=== PATIENT | male | born 2000 | race African-American/Black ===

== ENCOUNTER 2018-04-01 13:43 | Emergency (ER) | payer OTHER ==
[~2018-04-01] VITALS: Ht 177.8 cm; Wt 69.9 kg
[2018-04-01 15:01] VITALS: BP 125/68
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
== END 2018-04-01 15:00 | disposition home or self-care (01) ==
LOC: ER 13:43
DX: M25.551 Pain in right hip (principal); R42 Dizziness and giddiness; G89.11 Acute pain due to trauma; Z88.0 Allergy status to penicillin; V49.59XA Passenger injured in collision with other motor vehicles in traffic accident, initial encounter; Y93.89 Activity, other specified; Y92.89 Other specified places as the place of occurrence of the external cause; Y99.8 Other external cause status
CPT/HCPCS: 99281

== ENCOUNTER 2019-08-20 20:52 | Emergency (ER) | payer OTHER ==
[~2019-08-20] VITALS: Ht 180.3 cm; Wt 72.0 kg
[2019-08-20 20:55] VITALS: BP 123/75
[2019-08-20 22:03] LABS: BASO % 0 % (0-3); EOS # 0.4 x10^3/uL (0.0-0.7); EOS % 9 % (0-3); HEMATOCRIT 42.9 % (39.0-53.0); HEMOGLOBIN 13.9 g/dL (13.0-17.5); LYMPH # 1.9 x10^3/uL (1.0-4.8); LYMPH % 37 % (24-48); MEAN CORPUSCULAR HEMOGLOBIN 28 pg (25-35); MEAN CORPUSCULAR HGB CONC 33 g/dL (31-37); MEAN CORPUSCULAR VOLUME 85 fL (79-100); MONO # 0.9 x10^3/uL (0.0-1.1); MONO % 17 % (0-9); NEUT # 1.9 x10^3uL (1.8-7.7); NEUT % 37 % (31-73); PLATELET COUNT 291 x10^3/uL (140-400); RED BLOOD COUNT 5.07 x10^6/uL (4.30-5.70); RED CELL DISTRIBUTION WIDTH 14.9 % (11.5-14.5); WHITE BLOOD COUNT 5.1 x10^3/uL (4.0-11.0)
[2019-08-20 22:08] LABS: CALCIUM 9.2 mg/dL (8.5-10.1); CREATININE 1.1 mg/dL (0.7-1.3); GFR 102.2; POTASSIUM 3.7 mmol/L (3.5-5.1)
[2019-08-20] MEDS: IOHEXOL 300 MG/ML 75 ML VIAL. IV ONE (22:09)
[2019-08-20 22:13] LABS: ALBUMIN 3.8 g/dL (3.4-5.0); MAGNESIUM 2.1 mg/dL (1.8-2.4); TOTAL BILIRUBIN 0.3 mg/dL (0.2-1.0); TOTAL PROTEIN 7.5 g/dL (6.4-8.2)
[2019-08-20] MEDS: DEXAMETHASONE SOD PHOS 4 MG/ML VIAL IVP ONE (22:31)
[2019-08-20] MEDS: IV NORMAL SALINE 1,000ML 1,000 ML IV ONE (22:31)
[2019-08-20] MEDS: KETOROLAC 15 MG/ML VIAL. IVP ONE (22:31)
--- NOTE | 2019-08-20 22:35 | RAD ---
CT scan of the abdomen and pelvis with contrast 08/20/2019 CLINICAL HISTORY: Left lower quadrant abdominal pain. Blood in stools. TECHNIQUE: After the intravenous administration of 73 cc of Omnipaque 300, contiguous, 5 mm axial sections were obtained through the abdomen and pelvis. One or more of the following individualized dose reduction techniques were utilized for this study: 1. Automated exposure control. 2. Adjustment of the mA and/or kV according to patient size. 3. Use of iterative reconstruction technique. FINDINGS: The absence of oral contrast material limits the sensitivity of this study for the detection of bowel pathology. Images through the lung bases demonstrate minimal dependent subsegmental atelectasis bilaterally. The liver, spleen, pancreas, adrenal glands and kidneys are within normal limits. The abdominal aorta tapers normally. The gallbladder is contracted. No free fluid or free air is seen within the abdomen. There is no evidence of bowel obstruction. Air and stool are seen throughout the colon. The appendix is within normal limits. Images through the pelvis demonstrate the urinary bladder distended with urine. No free fluid is seen. Minimal S-shaped curvature of the thoracolumbar spine is noted. IMPRESSION: No acute abnormality is seen. Electronically signed by: Fer Michelle MD (08/20/2019 10:32 PM) [id number]
[2019-08-20] MEDS ORDERED: HYDR25SU18 RC (22:43)
[2019-08-20] MEDS ORDERED: HYOS0.1265 SL (22:43)
[2019-08-20] MEDS ORDERED: PRED20TA PO (22:43)
--- NOTE | 2019-08-20 22:44 | PHYS DOC ---
Past History Past Medical History: Other Additional Past Medical Histor: lactose intolerant Past Surgical History: Other Additional Past Surgical Histo: hernia repair as infant Smoking: Non-smoker Alcohol Use: None Drug Use: None Adult General Chief Complaint Chief Complaint: ABDOMINAL PAIN HPI HPI 19-year-old male presents with intermittent left lower quadrant abdominal pain is been ongoing for the past 2 weeks. Patient reports noting some diarrhea with mucus and bright red blood which started 4 days ago. Patient reports pain comes on prior to BM. Patient reports pain currently well controlled. Patient denies known sick contacts. Denies fever or chills. Denies nausea or vomiting. Patient does report family history of ulcerative colitis. Denies rectal pain. Denies tra clemente outside the [place]. Review of Systems Review of Systems Constitutional: Denies fever or chills Eyes: Denies redness or eye pain HENT: Denies nasal congestion or sore throat Respiratory: Denies cough or shortness of breath Cardiovascular: Denies chest pain or palpitations GI: Reports abdominal pain, bloody stools, and diarrhea; denies vomiting Musculoskeletal: Denies back pain or joint pain Integument: Denies rash or skin lesions Neurologic: Denies headache, focal weakness or sensory changes Complete systems were reviewed and found to be within normal limits, except as documented in this note. Current Medications Current Medications Current Medications Medications (Trade) Dose Ordered Sig/Brianna Start Time Stop Time Status Last Admin Dose Admin Dexamethasone Sodium Phosphate (Decadron) 10 mg 1X ONCE 08/20/19 21:45 08/20/19 21:46 DC 08/20/19 22:31 10 MG Iohexol (Omnipaque 300 Mg/ml) 75 ml 1X ONCE 08/20/19 22:00 08/20/19 22:01 DC 08/20/19 22:09 75 ML Ketorolac Tromethamine (Toradol 15mg Vial) 15 mg 1X ONCE 08/20/19 21:45 08/20/19 21:46 DC 08/20/19 22:31 15 MG Sodium Chloride 1,000 ml @ 1,000 mls/hr 1X ONCE 08/20/19 21:45 08/20/19 22:44 08/20/19 22:31 1,000 MLS/HR Allergies Allergies Allergies Coded Allergies Type Severity Reaction Last Updated Verified Penicillins Allergy Unknown 04/01/18 Yes Physical Exam Physical Exam Constitutional: Well developed, well nourished, no acute distress, non-toxic appearance HENT: Normocephalic, atraumatic, oropharynx moist Eyes: Conjunctiva normal, no discharge Neck: Normal range of motion, no tenderness, supple Cardiovascular: Heart rate normal, regular rhythm Lungs & Thorax: Bilateral breath sounds clear to auscultation, no wheezing Abdomen: Soft, LLQ tenderness, no guarding Rectal: No external hemorrhoid, no internal hemorrhoid on digital rectal exam, mucous with scant blood noted Skin: Warm, dry, no erythema, no rash Extremities: No tenderness, ROM intact, no edema Neurologic: Alert and oriented X 3, no focal deficits noted Psychologic: Affect normal, judgment normal Current Patient Data Vital Signs Vital Signs Date Time Temp Pulse Resp B/P (MAP) Pulse Ox O2 Delivery O2 Flow Rate FiO2 08/20/19 20:55 98.1 80 18 123/75 (91) 99 Room Air Lab Results Laboratory Tests Test 08/20/19 21:30 White Blood Count 5.1 x10^3/uL (4.0-11.0) Red Blood Count 5.07 x10^6/uL (4.30-5.70) Hemoglobin 13.9 g/dL (13.0-17.5) Hematocrit 42.9 % (39.0-53.0) Mean Corpuscular Volume 85 fL (79-100) Mean Corpuscular Hemoglobin 28 pg (25-35) Mean Corpuscular Hemoglobin Concent 33 g/dL (31-37) Red Cell Distribution Width 14.9 % (11.5-14.5) H Platelet Count 291 x10^3/uL (140-400) Neutrophils (%) (Auto) 37 % (31-73) Lymphocytes (%) (Auto) 37 % (24-48) Monocytes (%) (Auto) 17 % (0-9) H Eosinophils (%) (Auto) 9 % (0-3) H Basophils (%) (Auto) 0 % (0-3) Neutrophils # (Auto) 1.9 x10^3uL (1.8-7.7) Lymphocytes # (Auto) 1.9 x10^3/uL (1.0-4.8) Monocytes # (Auto) 0.9 x10^3/uL (0.0-1.1) Eosinophils # (Auto) 0.4 x10^3/uL (0.0-0.7) Basophils # (Auto) 0.0 x10^3/uL (0.0-0.2) Prothrombin Time 9.9 SEC (9.4-11.4) Prothrombin Time INR 1.0 (0.9-1.1) Activated Partial Thromboplast Time 27 SEC (23-33) Sodium Level 142 mmol/L (136-145) Potassium Level 3.7 mmol/L (3.5-5.1) Chloride Level 105 mmol/L (98-107) Carbon Dioxide Level 28 mmol/L (21-32) Anion Gap 9 (6-14) Blood Urea Nitrogen 7 mg/dL (8-26) L Creatinine 1.1 mg/dL (0.7-1.3) Estimated GFR (Cockcroft-Gault) 102.2 BUN/Creatinine Ratio 6 (6-20) Glucose Level 91 mg/dL (70-99) Calcium Level 9.2 mg/dL (8.5-10.1) Magnesium Level 2.1 mg/dL (1.8-2.4) Total Bilirubin 0.3 mg/dL (0.2-1.0) Aspartate Amino Transferase (AST) 24 U/L (15-37) Alanine Aminotransferase (ALT) 34 U/L (16-63) Alkaline Phosphatase 111 U/L (46-116) Total Protein 7.5 g/dL (6.4-8.2) Albumin 3.8 g/dL (3.4-5.0) Albumin/Globulin Ratio 1.0 (1.0-1.7) Lipase 556 U/L (73-393) H EKG EKG [] Radiology/Procedures Radiology/Procedures PROCEDURE: CT ABD PELV W/ IV CONTRST ONLY CT scan of the abdomen and pelvis with contrast 08/20/2019 CLINICAL HISTORY: Left lower quadrant abdominal pain. Blood in stools. TECHNIQUE: After the intravenous administration of 73 cc of Omnipaque 300, contiguous, 5 mm axial sections were obtained through the abdomen and pelvis. One or more of the following individualized dose reduction techniques were utilized for this study: 1. Automated exposure control. 2. Adjustment of the mA and/or kV according to patient size. 3. Use of iterative reconstruction technique. FINDINGS: The absence of oral contrast material limits the sensitivity of this study for the detection of bowel pathology. Images through the lung bases demonstrate minimal dependent subsegmental atelectasis bilaterally. The liver, spleen, pancreas, adrenal glands and kidneys are within normal limits. The abdominal aorta tapers normally. The gallbladder is contracted. No free fluid or free air is seen within the abdomen. There is no evidence of bowel obstruction. Air and stool are seen throughout the colon. The appendix is within normal limits. Images through the pelvis demonstrate the urinary bladder distended with urine. No free fluid is seen. Minimal S-shaped curvature of the thoracolumbar spine is noted. IMPRESSION: No acute abnormality is seen. Electronically signed by: Fer Michelle MD (08/20/2019 10:32 PM) [id number] Course & Med Decision Making Course & Med Decision Making Pertinent Labs and Imaging studies reviewed. (See chart for details) Patient presents with left lower quadrant abdominal pain with intermittent diarrhea that was noted to have mucus and hematochezia. Rectal exam without signs of hemorrhoid. CT abdomen/pelvis without acute process. Labs obtained and posted to chart. Patient with family history of ulcerative colitis. Concerned that patient may also be displaying early signs of ulcerative colitis. Symptomatic steroid provided. Patient stable for discharge with outpatient follow-up with PCP/GI. GI referral provided. Discussed findings and plan with patient, who acknowledges understanding and agreement. Dragon Disclaimer Dragon Disclaimer This electronic medical record was generated, in whole or in part, using a voice recognition dictation system. Departure Departure: Impression: Primary Impression: LLQ abdominal pain Additional Impression: Hematochezia Disposition: 01 HOME, SELF-CARE Condition: STABLE Referrals: PCP,CHRISTIANO (PCP) AMADOU CRAMER MD Patient Instructions: Abdominal Pain (Nonspecific), Rectal Bleeding, [id number], Ulcerative Colitis Scripts Hyoscyamine Sulfate (LEVSIN-SL) 0.125 Mg Tab.subl 0.125 MG SL Q4-6HRS PRN for PAIN, #14 TAB Prov: ANTONIETA VALE DO 08/20/19 Prednisone (PREDNISONE) 20 Mg Tablet 2 TAB PO DAILY for Colitis, #8 TAB Start this prescription tomorrow, 08/20 Prov: ANTONIETA VALE DO 08/20/19 Hydrocortisone Acetate (ANUSOL-HC) 25 Mg Supp.rect 1 SUPP RC BID PRN for Rectal bleeding for 7 Days, #14 SUPP 0 Refills Prov: ANTONIETA VALE DO 08/20/19 Problem Qualifiers ANTONIETA VALE DO Aug 20, 2019 22:43
[2019-08-20 23:16] LABS: BILIRUBIN,URINE NEG (NEG); CLARITY,URINE CLEAR; COLOR,URINE YELLOW; GLUCOSE,URINE NEG (NEG); NITRITE,URINE NEG (NEG); UROBILINOGEN,URINE 0.2 mg/dL (0.2 mg/dL)
[2019-08-20 23:17] LABS: BACTERIA,URINE 0 /HPF (0-FEW); RBC,URINE 0 /HPF (0-2); WBC,URINE RARE /HPF (0-4)
== END 2019-08-20 23:30 | disposition home or self-care (01) ==
LOC: ER 20:52
DX: R10.32 Left lower quadrant pain (principal); K92.1 Melena; Z88.0 Allergy status to penicillin
CPT/HCPCS: 36415; 74177; 80053; 81001; 83605; 83690; 83735; 85025; 85610; 85730; 96374; 96375; 99285; J1100; J1885; Q9967; J7030

== ENCOUNTER 2020-03-25 14:54 | Emergency (ER) | payer OTHER ==
[~2020-03-25] VITALS: Ht 180.3 cm; Wt 72.0 kg
[~2020-03-25 14:54] MED LIST: HYDR25SU18 RC; HYOS0.1265 SL; PRED20TA PO
[2020-03-25] MEDS ORDERED: FAMOTIDINE 20 MG/2 ML VIAL IVP ONE (15:15)
[2020-03-25] MEDS ORDERED: IOHEXOL 300 MG/ML 75 ML VIAL. IV ONE (15:15)
[2020-03-25] MEDS ORDERED: FAMOTIDINE 20 MG/2 ML VIAL ONE (15:17)
--- NOTE | 2020-03-25 15:29 | PHYS DOC ---
Past History Past Medical History: Other Additional Past Medical Histor: lactose intolerant (BEVERLY BERMEO APRN) Past Surgical History: Other Additional Past Surgical Histo: hernia repair as infant (BEVERLY BERMEO APRN) Smoking: Non-smoker Alcohol Use: None Drug Use: None (BEVERLY BERMEO APRN) Adult General Chief Complaint Chief Complaint: DIARRHEA HPI HPI Patient is a 20-year-old male patient presenting to the ED today complaining of generalized abdominal pain with rectal bleeding on and off since September 2019. Patient states she has been seen in the ED as well as by an outpatient with , He states he has not had any affirmative diagnosis but he was seen by a doctor yesterday and was started prednisone on surveillance on. He states he still has bloody diarrhea and abdominal pain. Denies any fever. Denies any nausea, vomiting. He states the doctor who saw him yesterday told him he needs to be seen by a GI doctor. (BEVERLY BERMEO APRN) Review of Systems Review of Systems Constitutional: Denies fever or chills [] Eyes: Denies change in visual acuity, redness, or eye pain [] HENT: Denies nasal congestion or sore throat [] Respiratory: Denies cough or shortness of breath [] Cardiovascular: No additional information not addressed in HPI [] GI: Reports abdominal pain and rectal bleeding, denies any nausea vomiting : Denies dysuria or hematuria [] Musculoskeletal: Denies back pain or joint pain [] Integument: Denies rash or skin lesions [] Neurologic: Denies headache, focal weakness or sensory changes [] All other systems were reviewed and found to be within normal limits, except as documented in this note. (BEVERLY BERMEO APRN) Current Medications Current Medications Current Medications Medications (Trade) Dose Ordered Sig/Brianna Start Time Stop Time Status Last Admin Dose Admin Famotidine (Pepcid Vial) 20 mg STK-MED ONCE 03/25/20 15:17 03/25/20 15:19 DC Info (Do NOT chart on this entry -- for MONITORING) 1 each PRN DAILY PRN 03/25/20 15:30 03/27/20 15:29 Iohexol (Omnipaque 300 Mg/ml) 75 ml 1X ONCE 03/25/20 15:15 03/25/20 15:19 DC (BEVERLY BERMEO APRN) Allergies Allergies Allergies Coded Allergies Type Severity Reaction Last Updated Verified Penicillins Allergy Unknown 04/01/18 Yes (BEVERLY BERMEO APRN) Physical Exam Physical Exam Constitutional: Well developed, well nourished, no acute distress, non-toxic appearance. [] HENT: Normocephalic, atraumatic, bilateral external ears normal, oropharynx moist, no oral exudates, nose normal. [] Eyes: PERRLA, EOMI, conjunctiva normal, no discharge. [] Neck: Normal range of motion, no tenderness, supple, no stridor. [] Cardiovascular:Heart rate regular rhythm, no murmur [] Lungs & Thorax: Bilateral breath sounds clear to auscultation [] Abdomen: Bowel sounds normal, soft, no tenderness, no masses, no pulsatile masses. [] Skin: Warm, dry, no erythema, no rash. [] Back: No tenderness, no CVA tenderness. [] Extremities: No tenderness, no cyanosis, no clubbing, ROM intact, no edema. [] Neurologic: Alert and oriented X 3, normal motor function, normal sensory function, no focal deficits noted. [] Psychologic: Affect normal, judgement normal, mood normal. [] (BEVERLY BERMEO APRN) EKG EKG [] (BEVERLY BERMEO APRN) Radiology/Procedures Radiology/Procedures []PROCEDURE: CT ABD PELV W/ IV CONTRST ONLY EXAM: CT Abdomen and Pelvis without IV contrast INDICATION: Reason: abd pain with rectal bleeding / Spl. Instructions: / History: TECHNIQUE: Multi-detector row CT images were acquired from the lung bases through the abdomen and pelvis without the use of IV contrast. Sagittal and coronal images were acquired from the transaxial data. All CT scans performed at this facility utilize dose optimization techniques as appropriate to the exam, including the following: Automated exposure control and adjustment of the mA and/or KV according to patient size (this includes techniques or standardized protocols for targeted exams where dose is indication/reason for exam). ORAL CONTRAST: None COMPARISON: None FINDINGS: The patient is very muscular and has an extreme paucity of intra-abdominal fat which limits detailed assessment. This is further compounded by lack of enteric contrast administration. The absence of IV contrast limits evaluation of soft tissue pathology. LOWER CHEST: Unremarkable LIVER: Unremarkable BILIARY SYSTEM: Gallbladder is unremarkable. Bile ducts are not dilated. PANCREAS: Unremarkable SPLEEN: Unremarkable ADRENALS: Unremarkable KIDNEYS & URETERS: Unremarkable BLADDER: Unremarkable REPRODUCTIVE ORGANS: Unremarkable GASTROINTESTINAL: The stomach, small bowel, and colon are unremarkable. The appendix is not well seen in its entirety. However, a portion of it is suspected present along the deep aspect of the right linea semilunaris and could be assessed in greater detail by ultrasound if clinically warranted. There are no findings suggestive of acute appendicitis. MESENTERY/PERITONEUM/RETROPERITONEUM: Unremarkable VASCULAR: Unremarkable LYMPH NODES: No adenopathy OSSEOUS & SOFT TISSUES: Unremarkable IMPRESSION: No acute findings on contrast enhanced CT of the abdomen and pelvis. Consider a GI bleeding scan in further evaluation. Electronically signed by: Riya Arguello MD (03/25/2020 3:48 PM) [facility] [place] DICTATED AND SIGNED BY: RIYA ARGUELLO MD DATE: 03/25/20 1548 CC: E[facility]; BEVERLY BERMEO APRN; PCP,NO ~ (BEVERLY BERMEO APRN) Heart Score Risk Factors: Risk Factors: DM, Current or recent (<one month) smoker, HTN, HLP, family history of CAD, obesity. Risk Scores: Risk Factors: DM, Current or recent (<one month) smoker, HTN, HLP, family history of CAD, obesity. (BEVERLY BERMEO APRN) Course & Med Decision Making Course & Med Decision Making Pertinent Labs and Imaging studies reviewed. (See chart for details) This is a 20-year-old male patient presented to the ED today with rectal bleeding and generalized abdominal pain since September 2019. 37 months ago. Was seen by a doctor yesterday and was started on prednisone. CBC with a normal WBC, normal hemoglobin and hematocrit. CMP with a creatinine of 1.5, BUN is normal. Given a liter of fluid. CT of the abdomen and pelvic is negative for any acute findings. Positive hemocult. Provided rx for pepcid. F/u with GI (BEVERLY BERMEO APRN) Dragon Disclaimer Dragon Disclaimer This electronic medical record was generated, in whole or in part, using a voice recognition dictation system. (BEVERLY BERMEO APRN) Departure Departure: Impression: Primary Impression: Rectal bleeding Additional Impressions: ARF (acute renal failure) Dehydration Abdominal pain Disposition: 01 DC HOME SELF CARE/HOMELESS Condition: STABLE Referrals: PCP,NO (PCP) AMADOU CRAMER MD follow up in 1 week Patient Instructions: Abdominal Pain (Nonspecific), Dehydration, Adult, Rectal Bleeding, [id number] Additional Instructions: You were seen for abdominal pain with rectal bleeding. Your work-up showed you are dehydrated, you given some IV fluids in the ED. Push fluids at home. Please follow-up with the provided esthetic dermatologist as soon as possible. Take the prescribed medications as ordered. Scripts Ondansetron (ONDANSETRON ODT) 4 Mg Tab.rapdis 1 TAB PO PRN Q6-8HRS, #16 TAB Prov: BEVERLY BERMEO APRN 03/25/20 Dicyclomine Hcl (DICYCLOMINE HCL) 20 Mg Tablet 1 TAB PO TID, #30 TAB 1 Refill Prov: BEVERLY BERMEO APRN 03/25/20 Famotidine (FAMOTIDINE) 20 Mg Tablet 1 TAB PO DAILY, #14 TAB 0 Refills Prov: BEVERLY BERMEO APRN 03/25/20 Attending Signature Attending Signature I have reviewed the PA/FORENSIC PSYCHIATRIST's note and plan of care. I was available for consultation as needed during the patient's visit in the emergency department. I agree with the clinical impression, plan, and disposition. (ANTONIETA VALE DO) Problem Qualifiers Additional Impressions: ARF (acute renal failure) Acute renal failure type: unspecified Qualified Codes: N17.9 - Acute kidney failure, unspecified Abdominal pain Abdominal location: generalized Qualified Codes: R10.84 - Generalized abdominal pain BEVERLY BERMEO APRN Mar 25, 2020 15:29 ANTONIETA VALE DO Mar 26, 2020 06:22
[2020-03-25] MEDS ORDERED: CONTRAST GIVEN. MC PRN (15:30)
[2020-03-25 15:49] LABS: BASO % 0 % (0-3); EOS # 0.1 x10^3/uL (0.0-0.7); EOS % 2 % (0-3); HEMATOCRIT 44.5 % (39.0-53.0); HEMOGLOBIN 14.2 g/dL (13.0-17.5); LYMPH # 1.1 x10^3/uL (1.0-4.8); LYMPH % 17 % (24-48); MEAN CORPUSCULAR HEMOGLOBIN 27 pg (25-35); MEAN CORPUSCULAR HGB CONC 32 g/dL (31-37); MEAN CORPUSCULAR VOLUME 84 fL (79-100); MONO # 0.3 x10^3/uL (0.0-1.1); MONO % 5 % (0-9); NEUT # 5.1 x10^3uL (1.8-7.7); NEUT % 77 % (31-73); PLATELET COUNT 345 x10^3/uL (140-400); RED BLOOD COUNT 5.27 x10^6/uL (4.30-5.70); RED CELL DISTRIBUTION WIDTH 16.3 % (11.5-14.5); WHITE BLOOD COUNT 6.6 x10^3/uL (4.0-11.0)
[2020-03-25 15:51] LABS: CALCIUM 9.5 mg/dL (8.5-10.1); CREATININE 1.5 mg/dL (0.7-1.3); GFR 70.8; POTASSIUM 3.8 mmol/L (3.5-5.1)
--- NOTE | 2020-03-25 15:51 | RAD ---
EXAM: CT Abdomen and Pelvis without IV contrast INDICATION: Reason: abd pain with rectal bleeding / Spl. Instructions: / History: TECHNIQUE: Multi-detector row CT images were acquired from the lung bases through the abdomen and pelvis without the use of IV contrast. Sagittal and coronal images were acquired from the transaxial data. All CT scans performed at this facility utilize dose optimization techniques as appropriate to the exam, including the following: Automated exposure control and adjustment of the mA and/or KV according to patient size (this includes techniques or standardized protocols for targeted exams where dose is indication/reason for exam). ORAL CONTRAST: None COMPARISON: None FINDINGS: The patient is very muscular and has an extreme paucity of intra-abdominal fat which limits detailed assessment. This is further compounded by lack of enteric contrast administration. The absence of IV contrast limits evaluation of soft tissue pathology. LOWER CHEST: Unremarkable LIVER: Unremarkable BILIARY SYSTEM: Gallbladder is unremarkable. Bile ducts are not dilated. PANCREAS: Unremarkable SPLEEN: Unremarkable ADRENALS: Unremarkable KIDNEYS & URETERS: Unremarkable BLADDER: Unremarkable REPRODUCTIVE ORGANS: Unremarkable GASTROINTESTINAL: The stomach, small bowel, and colon are unremarkable. The appendix is not well seen in its entirety. However, a portion of it is suspected present along the deep aspect of the right linea semilunaris and could be assessed in greater detail by ultrasound if clinically warranted. There are no findings suggestive of acute appendicitis. MESENTERY/PERITONEUM/RETROPERITONEUM: Unremarkable VASCULAR: Unremarkable LYMPH NODES: No adenopathy OSSEOUS & SOFT TISSUES: Unremarkable IMPRESSION: No acute findings on contrast enhanced CT of the abdomen and pelvis. Consider a GI bleeding scan in further evaluation. Electronically signed by: Law Arguello MD (03/25/2020 3:48 PM) [facility] [place]
[2020-03-25 15:56] LABS: ALBUMIN 3.9 g/dL (3.4-5.0); ALBUMIN/GLOBULIN RATIO 0.8 (1.0-1.7); TOTAL BILIRUBIN 0.5 mg/dL (0.2-1.0); TOTAL PROTEIN 8.5 g/dL (6.4-8.2)
[2020-03-25] MEDS ORDERED: IV NORMAL SALINE 1,000ML 1,000 ML IV ONE (16:00)
[2020-03-25 16:27] LABS: FECAL OB PT POSITIVE (NEG)
[2020-03-25] MEDS ORDERED: ONDA4TAB12 PO (17:06)
[2020-03-25] MEDS ORDERED: DICY20TA3 PO (17:06)
[2020-03-25] MEDS ORDERED: FAMO20TA5 PO (17:06)
[2020-03-25 18:24] VITALS: BP 135/74
[2020-03-25 19:00] LABS: BARBITURATES NEG (NEG); BENZODIAZEPINES NEG (NEG); CANNABINOIDS POS (NEG); COCAINE NEG (NEG); METHADONE NEG (NEG); OPIATES NEG (NEG); PHENCYCLIDINE NEG (NEG)
[2020-03-25 19:01] LABS: AMPHETAMINE/METHAMPHETAMINE NEG (NEG)
[2020-03-25 19:25] LABS: BILIRUBIN,URINE NEG (NEG); CLARITY,URINE CLEAR; COLOR,URINE AMBER; GLUCOSE,URINE NEG (NEG); NITRITE,URINE NEG (NEG); UROBILINOGEN,URINE 0.2 mg/dL (0.2 mg/dL)
[2020-03-25 19:26] LABS: BACTERIA,URINE 0 /HPF (0-FEW); RBC,URINE 0 /HPF (0-2); WBC,URINE OCC /HPF (0-4)
== END 2020-03-25 18:30 | disposition home or self-care (01) ==
LOC: ER 14:54
DX: N17.9 Acute kidney failure, unspecified (principal); K62.5 Hemorrhage of anus and rectum; E86.0 Dehydration; R10.84 Generalized abdominal pain; Z88.0 Allergy status to penicillin
CPT/HCPCS: 36415; 74177; 80053; 80307; 81001; 82274; 83690; 85025; 96374; 99285; G0480; J3490; Q9967

== ENCOUNTER → 2020-04-06 | Outpatient (CLI) | payer OTHER ==
[2020-03-25 18:24] VITALS: BP 135/74
[~2020-04-06] MED LIST changes: +DICY20TA3 PO; +FAMO20TA5 PO; +ONDA4TAB12 PO
== END ==
LOC: LAB 16:06
PROVIDERS: ATTEND Internal Medicine Gastroenterology
DX: K62.5 Hemorrhage of anus and rectum (principal)
CPT/HCPCS: 36415; 87493; 87505